=== PATIENT | male | born 1975 | race Caucasian/White ===

== ENCOUNTER 2019-09-29 07:23 | Day surgery (SDC) | payer OTHER ==
[~2019-09-29] VITALS: Ht 172.7 cm; Wt 70.0 kg
[2019-09-29] MEDS ORDERED: LACTATED RINGERS 1,000 ML IV SCH (07:44)
[2019-09-29 07:48] VITALS: BP 115/79
[2019-09-29] MEDS ORDERED: ALBU8.5H8 IH (07:56)
[2019-09-29] MEDS ORDERED: MIDAZOLAM 1 MG/ML, 2ML ONE (08:43)
[2019-09-29] MEDS ORDERED: FENTANYL PF 250 MCG/5ML ONE (08:44)
[2019-09-29] MEDS ORDERED: LIDOCAINE-MPF 2% ,5ML ONE (08:45)
[2019-09-29] MEDS ORDERED: DEXAMETHASONE 4 MG/ML, 1ML ONE (08:45)
[2019-09-29] MEDS ORDERED: PROPOFOL 10 MG/ML, 20ML ONE (08:45)
[2019-09-29] MEDS ORDERED: ONDANSETRON 2MG/ML, 2ML ONE (08:45)
[2019-09-29] MEDS ORDERED: SUCCINYLCHOLINE 20 MG/ML, 10ML ONE (08:45)
[2019-09-29] MEDS ORDERED: METOPROLOL 1 MG/ML, 5ML ONE (09:03)
[2019-09-29] MEDS ORDERED: KETAMINE 10 MG/ML, 20ML ONE (09:03)
[2019-09-29] MEDS ORDERED: ALBUTEROL HFA 90 MCG/SPRAY ONE (09:21)
[2019-09-29] MEDS ORDERED: MEPERIDINE/PF 50 MG/ML ONE (09:27)
[2019-09-29] MEDS ORDERED: LORazepam 2 MG/ML, 1ML IVPush PRN (09:30)
[2019-09-29] MEDS ORDERED: PROMETHAZINE 25 MG/ML, 1ML IV PRN (09:30)
[2019-09-29] MEDS ORDERED: LABETALOL 5MG/ML, 20ML IV PRN (09:30)
[2019-09-29] MEDS ORDERED: HYDROmorphone 2 MG/ML, 1ML IVPush PRN (09:30)
[2019-09-29] MEDS ORDERED: MEPERIDINE/PF 25MG/ML,1ML IVPush PRN (09:30)
[2019-09-29] MEDS ORDERED: HALOPERIDOL 5 MG/ML IV PRN (09:30)
[2019-09-29] MEDS ORDERED: ALBUTEROL/IPRATROPIUM 2.5MG/0.5MG, 3 ML NPPB PRN (09:30)
[2019-09-29] MEDS ORDERED: FENTANYL PF 100 MCG/2ML IV PRN (09:30)
[2019-09-29] MEDS ORDERED: hydrALAzine 20 MG/ML, 1ML IV PRN (09:30)
[2019-09-29] MEDS ORDERED: OXYcodone 5 MG/5 ML ORAL.SOL UDC PO PRN (09:30)
== END 2019-09-29 11:35 | disposition home or self-care (01) ==
LOC: OUT 07:23
PROVIDERS: ATTEND Internal Medicine
DX: R93.2 Abnormal findings on diagnostic imaging of liver and biliary tract (principal); C20 Malignant neoplasm of rectum; D12.5 Benign neoplasm of sigmoid colon; K57.30 Diverticulosis of large intestine without perforation or abscess without bleeding; J45.909 Unspecified asthma, uncomplicated; F41.9 Anxiety disorder, unspecified; F17.210 Nicotine dependence, cigarettes, uncomplicated; Z72.89 Other problems related to lifestyle; Z79.899 Other long term (current) drug therapy; Z83.3 Family history of diabetes mellitus; Z80.9 Family history of malignant neoplasm, unspecified
CPT/HCPCS: 43235; 45381; 45385; 45392; 88305; A4648; J0330; J1100; J2175; J2250; J2405; J2704; J3010

== ENCOUNTER 2019-10-02 08:38 | Day surgery (SDC) ==
[~2019-10-02] VITALS: Ht 172.7 cm; Wt 71.0 kg
[~2019-10-02 08:38] MED LIST: ALBU8.5H8 IH
[2019-10-02 08:59] VITALS: BP 103/73
[2019-10-02] MEDS ORDERED: SODIUM CHLORIDE 0.9% 1,000 ML IV SCH (09:00)
[2019-10-02 10:20] LABS: INTERNATIONAL NORMALIZED RATIO 0.96 (0.93-1.1); PROTHROMBIN TIME 10.1 Seconds (9.6-11.5)
[2019-10-02] MEDS ORDERED: FENTANYL PF 100 MCG/2ML ONE (10:56)
[2019-10-02] MEDS ORDERED: FLUMAZENIL 0.1 MG/1 ML, 5ML ONE (10:56)
[2019-10-02] MEDS ORDERED: MIDAZOLAM 1 MG/ML, 5ML ONE (10:56)
[2019-10-02] MEDS ORDERED: NALOXONE 1 MG/ML, 2ML ONE (10:56)
[2019-10-02] MEDS ORDERED: LIDOCAINE 1%, 10ML ONE (11:00)
== END 2019-10-02 12:50 | disposition home or self-care (01) ==
LOC: OUT 08:38 → EDSTATUS 09:00 → OUT 12:50
PROVIDERS: ATTEND Family Medicine
DX: R16.0 Hepatomegaly, not elsewhere classified (principal); C78.7 Secondary malignant neoplasm of liver and intrahepatic bile duct; C26.9 Malignant neoplasm of ill-defined sites within the digestive system; I10 Essential (primary) hypertension; F32.9 Major depressive disorder, single episode, unspecified; J45.20 Mild intermittent asthma, uncomplicated; F17.210 Nicotine dependence, cigarettes, uncomplicated; Z72.89 Other problems related to lifestyle
CPT/HCPCS: 36415; 47000; 76942; 85610; 88307; 88341; 88342; 99156; 99157; J2250; J3010; 88313; C1751; J2310

== ENCOUNTER 2019-10-24 21:22 | Emergency (ER) | payer OTHER ==
[~2019-10-24] VITALS: Ht 172.7 cm; Wt 69.3 kg
[2019-10-24 21:27] VITALS: BP 126/69
[2019-10-24 22:12] LABS: BASOPHILS # (AUTO) 0.04 x10^3/uL (0-0.1); BASOPHILS % (AUTO) 0 % (0-1); EOSINOPHILS # (AUTO) 1.17 x10^3/uL (0-0.4); EOSINOPHILS % (AUTO) 9 % (1-7); LYMPHOCYTES # (AUTO) 1.97 x10^3/uL (1-3.4); LYMPHOCYTES % (AUTO) 16 % (22-44); MD NO; MEAN CORPUSCULAR HEMOGLOBIN 32.7 pg (27.5-34.5); MEAN CORPUSCULAR HGB CONC 33.2 g/dL (33.2-36.2); MEAN CORPUSCULAR VOLUME 98.3 fL (81-97); MEAN PLATELET VOLUME 7.3 fL (7.4-10.4); MONOCYTES # (AUTO) 0.98 x10^3/uL (0.2-0.8); MONOCYTES % (AUTO) 8 % (2-9); NEUTROPHILS # (AUTO) 8.41 x10^3/uL (1.8-6.8); NEUTROPHILS % (AUTO) 67 % (42-75); PLATELET COUNT 479 x10^3/uL (130-400); RED BLOOD COUNT 4.97 x10^6/uL (4.38-5.82); RED CELL DISTRIBUTION WIDTH 13.9 % (9.4-14.8)
[2019-10-24 22:18] LABS: ANION GAP 11 mmol/L (5-15); CALCIUM 9.2 mg/dL (8.5-10.1); CHLORIDE 102 mmol/L (98-107); CREATININE 0.76 mg/dL (0.7-1.3)
== END 2019-10-24 22:44 | disposition home or self-care (01) ==
LOC: ED 21:44
DX: E87.6 Hypokalemia (principal); J45.909 Unspecified asthma, uncomplicated; F17.200 Nicotine dependence, unspecified, uncomplicated; Z85.038 Personal history of other malignant neoplasm of large intestine
CPT/HCPCS: 36415; 80048; 85025; 99283

== ENCOUNTER 2019-10-27 11:01 | Day surgery (SDC) | payer OTHER ==
[~2019-10-27] VITALS: Ht 172.7 cm; Wt 67.5 kg
[2019-10-27 11:38] VITALS: BP 111/74
[2019-10-27] MEDS ORDERED: CEFAZOLIN PMX 1GM/50ML 50 ML IV STA (11:40)
[2019-10-27] MEDS ORDERED: SODIUM CHLORIDE 0.9% 1,000 ML IV SCH (11:41)
[2019-10-27] MEDS ORDERED: LIDOCAINE 1%, 20ML ONE (12:05)
[2019-10-27] MEDS ORDERED: FLUMAZENIL 0.1 MG/1 ML, 5ML ONE (12:19)
[2019-10-27] MEDS ORDERED: FENTANYL PF 100 MCG/2ML ONE ×2 (12:19)
[2019-10-27] MEDS ORDERED: MIDAZOLAM 1 MG/ML, 5ML ONE (12:19)
[2019-10-27] MEDS ORDERED: NALOXONE 1 MG/ML, 2ML ONE (12:19)
[2019-10-27] MEDS ORDERED: LIDOCAINE 1%, 10ML ONE (12:44)
== END 2019-10-27 14:00 | disposition home or self-care (01) ==
LOC: OUT 11:01
PROVIDERS: ATTEND Internal Medicine Hematology & Oncology
DX: C20 Malignant neoplasm of rectum (principal); C78.7 Secondary malignant neoplasm of liver and intrahepatic bile duct; F10.20 Alcohol dependence, uncomplicated; J44.9 Chronic obstructive pulmonary disease, unspecified; F12.10 Cannabis abuse, uncomplicated; F17.210 Nicotine dependence, cigarettes, uncomplicated
CPT/HCPCS: 36561; 76937; 77001; 99156; 99157; C1788; J1642; J2250; J3010; J7030; J2310

== ENCOUNTER → 2020-02-04 | Outpatient (CLI) | payer OTHER ==
[~2020-02-04] MED LIST changes: +OMNIPAQUE 350 MG/ML, 100ML BOTTLE ONE
== END | disposition home or self-care (01) ==
LOC: CFH 08:24
PROVIDERS: ATTEND Internal Medicine Hematology & Oncology
DX: C78.7 Secondary malignant neoplasm of liver and intrahepatic bile duct (principal); C20 Malignant neoplasm of rectum
CPT/HCPCS: 71260; 74177; Q9967

== ENCOUNTER → 2020-03-31 | Outpatient (CLI) | payer OTHER | END | disposition home or self-care (01) | LOC: CFH 09:50 | PROVIDERS: ATTEND Internal Medicine Hematology & Oncology | DX: C20 Malignant neoplasm of rectum (principal); C78.7 Secondary malignant neoplasm of liver and intrahepatic bile duct | CPT/HCPCS: 74160; Q9967 ==

== ENCOUNTER → 2020-07-27 | Outpatient (CLI) | payer OTHER | END | disposition home or self-care (01) | LOC: CFH 09:06 | PROVIDERS: ATTEND Internal Medicine Hematology & Oncology | DX: C20 Malignant neoplasm of rectum (principal); C78.7 Secondary malignant neoplasm of liver and intrahepatic bile duct | CPT/HCPCS: 71260; 74177; Q9967 ==

== ENCOUNTER → 2020-11-08 | Outpatient (CLI) | payer OTHER | END | disposition home or self-care (01) | LOC: RAD 14:22 | PROVIDERS: ATTEND Internal Medicine Hematology & Oncology | DX: C20 Malignant neoplasm of rectum (principal); C78.7 Secondary malignant neoplasm of liver and intrahepatic bile duct | CPT/HCPCS: 71260; 74177; Q9967 ==